=== PATIENT | female | born 1965 | race American Indian/Alaskan Native ===

== ENCOUNTER 2019-06-05 08:20 | Emergency (ER) | payer SELFPAY ==
[2019-06-05 08:29] VITALS: BP 125/71
--- NOTE | 2019-06-05 09:05 | XRay Report ---
CHEST 2 VIEWS INDICATION: Chest Pain. COMPARISON: 08/17/2009 FINDINGS: Support devices: None. Heart: Within normal limits. Lungs/pleura: No acute air space or interstitial disease. No pneumothorax. Additional findings: None. IMPRESSION: 1. No acute findings. Signer Name: Harmeet Kern MD Signed: 06/05/2019 9:00 AM Workstation Name: [id number]
[2019-06-05 09:17] LABS: BUN/Creatinine Ratio 13; Blood Urea Nitrogen 8 mg/dL (7-17); Calcium 9.4 mg/dL (8.4-10.2); Hemolysis Index 1
--- NOTE | 2019-06-05 09:24 | Emergency Department Report ---
ED General Adult HPI - General Chief complaint: Upper Respiratory Infection Stated complaint: CHEST PAIN/RT EARACHE Time Seen by Provider: 06/05/19 09:12 Source: patient, family Mode of arrival: Ambulatory Limitations: No Limitations - History of Present Illness Initial comments: I have a cold with chest tightness cough and earache. Pain generalized 6 out of 10 and achy . No medication taken for pain. Coughing 1 month and has a history of asthma and bronchitis. Take albuterol for asthma as needed MD Complaint: cold Onset/Timin -: month(s) Radiation: other (generalized pain) Severity scale (0 -10): 6 Quality: aching Consistency: intermittent Worsens with: none Associated Symptoms: chest pain, cough, other (wheezing and nasal drainage). denies: confusion, diaphoresis, fever/chills, headaches, loss of appetite, malaise, nausea/vomiting, rash, seizure, shortness of breath, syncope, weakness Treatments Prior to Arrival: other (albuterol) - Related Data Home Medications Medication Instructions Recorded Confirmed Last Taken Albuterol Sulfate [Albuterol 0.63%] 0.63 mg IH TID PRN 08/27/13 08/27/13 08/26/13 14:00 Previous Rx's Medication Instructions Recorded Last Taken Type Amoxicillin [Trimox CAP] 500 mg PO Q8H #30 capsule 08/27/13 Unknown Rx Ibuprofen [Motrin] 800 mg PO TID PRN #15 tablet 08/27/13 Unknown Rx Prednisone 20 mg PO QDAY #5 tablet 08/27/13 Unknown Rx ALBUTEROL Inhaler (OR & NICU) 2 puff IH Q6H PRN #1 inhalation 06/05/19 Unknown Rx [ProAir HFA Inhaler] Amoxicillin/K Clav Tab [Augmentin 1 tab PO Q12HR #20 tab 06/05/19 Unknown Rx 875MG TAB] Cetirizine HCl [ZyrTEC] 10 mg PO QAM 14 Days #14 capsule 06/05/19 Unknown Rx Fluticasone [Flonase] 1 spray NS QDAY 14 Days #1 bottle 06/05/19 Unknown Rx Ibuprofen [Motrin] 800 mg PO Q8HR PRN #12 tablet 06/05/19 Unknown Rx Inhaler, Assist Devices [Space 1 each MC ONCE #1 spacer 06/05/19 Unknown Rx Chamber Plus] guaiFENesin/CODEINE [Robitussin AC] 10 ml PO QHS PRN #70 oral.liqd 06/05/19 Unknown Rx methylPREDNISolone [Medrol 4MG 4 mg PO QAM 6 Days #1 tab.ds.pk 06/05/19 Unknown Rx DOSEPAK (21 tabs)] Allergies Allergy/AdvReac Type Severity Reaction Status Date / Time No Known Allergies Allergy Unverified 08/27/13 06:24 ED Review of Systems ROS: Stated complaint: CHEST PAIN/RT EARACHE Other details as noted in HPI Constitutional: denies: chills, fever Eyes: denies: eye pain, vision change ENT: congestion. denies: ear pain, throat pain Respiratory: cough, wheezing. denies: shortness of breath, SOB with exertion, SOB at rest Cardiovascular: denies: chest pain, palpitations, edema, syncope Gastrointestinal: denies: abdominal pain, nausea, vomiting Musculoskeletal: arthralgia, myalgia Skin: denies: rash Neurological: denies: headache, numbness, paresthesias, abnormal gait, vertigo ED Past Medical Hx - Past Medical History Previous Medical History?: Yes Hx Asthma: Yes (bronchitis) - Surgical History Past Surgical History?: No - Family History Family history: hypertension - Social History Smoking Status: Never Smoker Substance Use Type: Alcohol - Medications Home Medications: Home Medications Medication Instructions Recorded Confirmed Last Taken Type Albuterol Sulfate [Albuterol 0.63%] 0.63 mg IH TID PRN 08/27/13 08/27/13 08/26/13 14:00 History Amoxicillin [Trimox CAP] 500 mg PO Q8H #30 capsule 08/27/13 Unknown Rx Ibuprofen [Motrin] 800 mg PO TID PRN #15 tablet 08/27/13 Unknown Rx Prednisone 20 mg PO QDAY #5 tablet 08/27/13 Unknown Rx ALBUTEROL Inhaler (OR & NICU) 2 puff IH Q6H PRN #1 inhalation 06/05/19 Unknown Rx [ProAir HFA Inhaler] Amoxicillin/K Clav Tab [Augmentin 1 tab PO Q12HR #20 tab 06/05/19 Unknown Rx 875MG TAB] Cetirizine HCl [ZyrTEC] 10 mg PO QAM 14 Days #14 capsule 06/05/19 Unknown Rx Fluticasone [Flonase] 1 spray NS QDAY 14 Days #1 bottle 06/05/19 Unknown Rx Ibuprofen [Motrin] 800 mg PO Q8HR PRN #12 tablet 06/05/19 Unknown Rx Inhaler, Assist Devices [Space 1 each MC ONCE #1 spacer 06/05/19 Unknown Rx Chamber Plus] guaiFENesin/CODEINE [Robitussin AC] 10 ml PO QHS PRN #70 oral.liqd 06/05/19 Unknown Rx methylPREDNISolone [Medrol 4MG 4 mg PO QAM 6 Days #1 tab.ds.pk 06/05/19 Unknown Rx DOSEPAK (21 tabs)] ED Physical Exam - General Limitations: No Limitations General appearance: alert, in no apparent distress - Head Head exam: Present: atraumatic, normocephalic - Eye Eye exam: Present: normal appearance, PERRL, EOMI Pupils: Present: normal accommodation - ENT ENT exam: Present: normal orophraynx, mucous membranes moist, TM's normal bilaterally (congested), other (nasal congestion with drainage. Mildly increasing turbinates with erythema). Absent: normal external ear exam - Neck Neck exam: Present: normal inspection, full ROM. Absent: tenderness, lymphadenopathy - Respiratory Respiratory exam: Present: wheezes (scattered wheezes into lung ken), other (dry cough). Absent: respiratory distress, chest wall tenderness, accessory muscle use - Cardiovascular Cardiovascular Exam: Present: normal rhythm, bradycardia, normal heart sounds, other (patient reports that she always has a low heart rate and manual pulses at 55 bpm) - GI/Abdominal GI/Abdominal exam: Present: soft (.), normal bowel sounds. Absent: tenderness - Extremities Exam Extremities exam: Present: normal inspection, full ROM, normal capillary refill, other (No cce. + 2 pulses in all extremities, no neurovascular compromise). Absent: tenderness, pedal edema, joint swelling, calf tenderness - Back Exam Back exam: Present: normal inspection, full ROM, other (ambulates without any difficulties). Absent: tenderness, muscle spasm, rash noted - Neurological Exam Neurological exam: Present: alert, oriented X3, normal gait - Psychiatric Psychiatric exam: Present: normal affect, normal mood - Skin Skin exam: Present: warm, dry, intact, normal color. Absent: rash ED Course Vital Signs 06/05/19 08:28 Temperature 98.1 F Pulse Rate 50 L Respiratory 20 Rate Blood Pressure 125/71 O2 Sat by Pulse 100 Oximetry Vital Signs 06/05/19 06/05/19 06/05/19 08:28 09:58 10:14 Temperature 98.1 F Pulse Rate 50 L 58 L Pulse Rate [ 54 L Anterior Bilateral Throughout] Respiratory 20 Rate Respiratory 17 Rate [Anterior Bilateral Throughout] Blood Pressure 125/71 O2 Sat by Pulse 100 Oximetry - Reevaluation(s) Reevaluation #1: 06/05/19 10:08 Patient given Xopenex 0.63 mg nebulizer and Deltasone 60 mg by mouth. She stable in no acute distress. Reevaluation #2: 06/05/19 10:14 Patient is stable and in no acute distress. Lung sounds are clear after Xopenex. ED Medical Decision Making - Lab Data Result diagrams: 06/05/19 08:42 06/05/19 08:42 Lab Results 06/05/19 06/05/19 Range/Units 08:42 08:42 WBC 3.8 L (4.5-11.0) K/mm3 RBC 4.52 (3.65-5.03) M/mm3 Hgb 12.5 (10.1-14.3) gm/dl Hct 37.7 (30.3-42.9) % MCV 84 (79-97) fl MCH 28 (28-32) pg MCHC 33 (30-34) % RDW 14.5 (13.2-15.2) % Plt Count 205 (140-440) K/mm3 Lymph % (Auto) 48.9 H (13.4-35.0) % Moore % (Auto) 10.2 H (0.0-7.3) % Eos % (Auto) 2.9 (0.0-4.3) % Baso % (Auto) 0.9 (0.0-1.8) % Lymph # 1.8 (1.2-5.4) K/mm3 Moore # 0.4 (0.0-0.8) K/mm3 Eos # 0.1 (0.0-0.4) K/mm3 Baso # 0.0 (0.0-0.1) K/mm3 Seg Neutrophils % 37.1 L (40.0-70.0) % Seg Neutrophils # 1.4 L (1.8-7.7) K/mm3 Sodium 139 (137-145) mmol/L Potassium 3.9 (3.6-5.0) mmol/L Chloride 105.9 (98-107) mmol/L Carbon Dioxide 23 (22-30) mmol/L Anion Gap 14 mmol/L BUN 8 (7-17) mg/dL Creatinine 0.6 L (0.7-1.2) mg/dL Estimated GFR > 60 ml/min BUN/Creatinine Ratio 13 % Glucose 108 H (65-100) mg/dL Calcium 9.4 (8.4-10.2) mg/dL Troponin T < 0.010 (0.00-0.029) ng/mL - EKG Data -: EKG Interpreted by Me (attending physician) Rate: bradycardia (47 bpm. Manual pulses at 55 bpm) - EKG Data When compared to previous EKG there are: no significant change - Radiology Data Radiology results: report reviewed Chest x-ray dictated by radiologist and report reviewed by myself. Please see details below Print Report Referring Physician:LUZ MARINA KINCAIDPatient Name:ZULMA PATELPatient ID:[id number] of :[id number]:FemaleAccession:[id number] Date:[id number] Status:Finalized Findings [facility] [address] [place] [address] XRay Report Signed Patient: ZULMA PATEL MR#: [id number] : 1965 Acct:[id number] Age/Sex: 53 / F ADM Date: 06/05/19 Loc: ED Attending Dr: Ordering Physician: LUZ MARINA KINCAID MD Date of Service: 06/05/19 Procedure(s): XR chest routine 2V Accession Number(s): [id number] cc: LUZ MARINA KINCAID MD Fluoro Time In Minutes: CHEST 2 VIEWS INDICATION: Chest Pain. COMPARISON: 08/17/2009 FINDINGS: Support devices: None. Heart: Within normal limits. Lungs/pleura: No acute air space or interstitial disease. No pneumothorax. Additional findings: None. IMPRESSION: 1. No acute findings. Signer Name: Harmeet Kern MD Signed: 06/05/2019 9:00 AM Workstation Name: [id number] Transcribed By: JORGE LUIS Dictated By: Harmeet Kern MD Electronically Authenticated By: Harmeet Kern MD Signed Date/Time: 06/05/19899 DD/ 8 TD/TT: - Medical Decision Making 53-year-old female here for cough congestion for over a month. Chest x-ray reveals no acute findings per radiologist and reviewed by myself. Patient was given Xopenex and Deltasone emergency room without any adverse reaction. She says she feels better. I discussed diagnosis, treatment plan and x-ray findings of her along with her EKG and lab work and she voiced understanding. Patient with bronchitis and asthma, mild. I discussed treatment plan of albuterol, Flonase, Augmentin, Medrol Dosepak, Augmentin and Zyrtec along with Motrin and to follow-up with her primary care which she says she does have one in 2-3 days and she voiced understanding. - Differential Diagnosis PNA, ACS, bronchitis, asthma, upper respiratory with cough and congestion Critical care attestation.: If time is entered above; I have spent that time in minutes in the direct care of this critically ill patient, excluding procedure time. ED Disposition Clinical Impression: Cough Asthmatic bronchitis with acute exacerbation Qualifiers: Asthma severity: mild Asthma persistence: intermittent Qualified Code(s): J45.21 - Mild intermittent asthma with (acute) exacerbation Disposition: DC-01 TO HOME OR SELFCARE Is pt being admited?: No Does the pt Need Aspirin: No Condition: Stable Instructions: Asthma (ED), Acute Bronchitis (ED) Additional Instructions: Follow-up with the primary care physician in 2-3 days and if he do not have one follow[facility]up with [facility] Take medication as prescribed Return to the emergency room if he symptoms worsens Please do not drive or operate heavy machinery while taking and guaifenesin with codeine cough medicine as this causes drowsiness Referrals: [facility] [Outside] - 3-5 Days Forms: Work/School Release Form(ED)
[2019-06-05] MEDS ORDERED: LEVALBUTEROL 0.63 MG/3 ML NEBU IH ONE (09:25)
[2019-06-05] MEDS ORDERED: predniSONE 20 MG TAB PO ONE (09:26)
[2019-06-05 09:39] LABS: Basophils % (Auto) 0.9 % (0.0-1.8); Eosinophils # (Auto) 0.1 K/mm3 (0.0-0.4); Eosinophils % (Auto) 2.9 % (0.0-4.3); Hematocrit 37.7 % (30.3-42.9); Hemoglobin 12.5 gm/dl (10.1-14.3); Lymphocytes # (Auto) 1.8 K/mm3 (1.2-5.4); Lymphocytes % (Auto) 48.9 % (13.4-35.0); Mean Corpuscular HGB Conc 33 % (30-34); Mean Corpuscular Volume 84 fl (79-97); Monocytes # (Auto) 0.4 K/mm3 (0.0-0.8); Monocytes % (Auto) 10.2 % (0.0-7.3); Platelet Count 205 K/mm3 (140-440); Red Blood Count 4.52 M/mm3 (3.65-5.03); Red Cell Distribution Width 14.5 % (13.2-15.2)
== END 2019-06-05 10:52 | disposition home or self-care (01) ==
LOC: ED 08:20
DX: J45.901 Unspecified asthma with (acute) exacerbation (principal); Z79.899 Other long term (current) drug therapy
CPT/HCPCS: 36415; 71046; 80048; 84484; 85025; 93005; 93010; 94640; 99284; J7512; 94644

== ENCOUNTER 2020-05-28 17:25 | Emergency (ER) | payer SELFPAY ==
--- NOTE | 2020-05-28 17:32 | Event Note ---
ED Screening Note Date of service: 05/28/20 Time: 17:30 ED Screening Note: Pt c/o sudden onset of chest pain x today denies hx of MA/CVA/DVT/PE states she takes unknown medication for hot flashes, but denies the medication being a hormone This initial assessment/diagnostic orders/clinical plan/treatment(s) is/are subject to change based on patients health status, clinical progression and re- assessment by fellow clinical providers in the ED. Further treatment and workup at subsequent clinical providers discretion. Patient/guardian urged not to elope from the ED as their condition may be serious if not clinically assessed and managed. Initial orders include: CXR EKG labs
--- NOTE | 2020-05-28 18:02 | XRay Report ---
CHEST 2 VIEWS INDICATION / CLINICAL INFORMATION: Chest Pain. COMPARISON: 05/28/2019 FINDINGS: SUPPORT DEVICES: None. HEART / MEDIASTINUM: No significant abnormality. LUNGS / PLEURA: No significant pulmonary or pleural abnormality. No pneumothorax. ADDITIONAL FINDINGS: No significant additional findings. IMPRESSION: No significant abnormality or interval change from 06/05/2015 Signer Name: Omer Welch MD FACR Signed: 05/28/2020 5:57 PM Workstation Name: [id number]
[2020-05-28 18:46] LABS: Basophils # (Auto) 0.1 K/mm3 (0.0-0.1); Basophils % (Auto) 0.9 % (0.0-1.8); Eosinophils # (Auto) 0.1 K/mm3 (0.0-0.4); Eosinophils % (Auto) 0.7 % (0.0-4.3); Hematocrit 38.5 % (30.3-42.9); Hemoglobin 12.9 gm/dl (10.1-14.3); Lymphocytes # (Auto) 2.2 K/mm3 (1.2-5.4); Lymphocytes % (Auto) 26.8 % (13.4-35.0); Mean Corpuscular HGB Conc 34 % (30-34); Mean Corpuscular Volume 82 fl (79-97); Monocytes # (Auto) 0.8 K/mm3 (0.0-0.8); Monocytes % (Auto) 9.5 % (0.0-7.3); Platelet Count 195 K/mm3 (140-440); Red Cell Distribution Width 13.9 % (13.2-15.2)
[2020-05-28 19:03] LABS: Alanine Aminotransferase 14 units/L (7-56); Albumin 4.3 g/dL (3.9-5); Blood Urea Nitrogen 13 mg/dL (7-17); Calcium 10.2 mg/dL (8.4-10.2); Hemolysis Index 17
[2020-05-28 19:05] LABS: BUN/Creatinine Ratio 19
[2020-05-28 22:05] VITALS: BP 141/57
--- NOTE | 2020-05-28 23:17 | Emergency Department Report ---
ED Chest Pain HPI - General Chief Complaint: Chest Pain Stated Complaint: PAIN IN BLADDER, CHEST PAIN Time Seen by Provider: 05/28/20 17:27 Source: patient Mode of arrival: Ambulatory Limitations: No Limitations - History of Present Illness Initial Comments: Patient is a 54-year-old -[place] female with history of bronchitis who presents for chest and low back pain x today, pt denies fever or chills, n/v ,or fever or chills. Pt denies sob, dizziness, no lightheadedness, pt endorses dysuria and frequency, she denies hematuria, no hx or renal stones, no hx Gallstones,no hx or PE. Symptoms are rated at 4/10 sharp achy, symptom exacerbated by movement, symptom relieved by nothing tried. Pt denies smoking. MD Complaint: chest pain - Related Data Home Medications Medication Instructions Recorded Confirmed Last Taken Albuterol Sulfate [Albuterol 0.63%] 0.63 mg IH TID PRN 08/27/13 08/27/13 08/26/13 14:00 Previous Rx's Medication Instructions Recorded Last Taken Type Amoxicillin [Trimox CAP] 500 mg PO Q8H #30 capsule 08/27/13 Unknown Rx Ibuprofen [Motrin] 800 mg PO TID PRN #15 tablet 08/27/13 Unknown Rx Prednisone 20 mg PO QDAY #5 tablet 08/27/13 Unknown Rx Albuterol Mdi (or & Nicu Only) 2 puff IH Q6H PRN #1 inhalation 06/05/19 Unknown Rx [ProAir HFA Inhaler] Amoxicillin/K Clav Tab [Augmentin 1 tab PO Q12HR #20 tab 06/05/19 Unknown Rx 875MG TAB] Cetirizine HCl [ZyrTEC] 10 mg PO QAM 14 Days #14 capsule 06/05/19 Unknown Rx Fluticasone [Flonase] 1 spray NS QDAY 14 Days #1 bottle 06/05/19 Unknown Rx Ibuprofen [Motrin] 800 mg PO Q8HR PRN #12 tablet 06/05/19 Unknown Rx Inhaler, Assist Devices [Space 1 each MC ONCE #1 spacer 06/05/19 Unknown Rx Chamber Plus] guaiFENesin/CODEINE [Robitussin AC] 10 ml PO QHS PRN #70 oral.liqd 06/05/19 Unknown Rx methylPREDNISolone [Medrol 4MG 4 mg PO QAM 6 Days #1 tab.ds.pk 06/05/19 Unknown Rx DOSEPAK (21 tabs)] Ibuprofen [Motrin 800 MG tab] 800 mg PO Q8HR PRN 7 Days #21 05/29/20 Unknown Rx tablet Sulfamethoxazole/Trimethoprim 1 each PO BID 7 Days #14 tablet 05/29/20 Unknown Rx [Bactrim DS TAB] Allergies Allergy/AdvReac Type Severity Reaction Status Date / Time No Known Allergies Allergy Unverified 08/27/13 06:24 Heart Score - HEART Score History: Slightly suspicious EKG: Normal Age: 45-65 Risk factors: No known risk factors Troponin: < normal limit HEART Score: 1 ED Review of Systems ROS: Stated complaint: PAIN IN BLADDER, CHEST PAIN Other details as noted in HPI Constitutional: denies: chills, fever Eyes: denies: eye pain, eye discharge, vision change ENT: denies: ear pain, throat pain Respiratory: denies: cough, shortness of breath, wheezing Cardiovascular: denies: chest pain, palpitations Endocrine: no symptoms reported Gastrointestinal: denies: abdominal pain, nausea, vomiting, diarrhea Genitourinary: urgency, dysuria, frequency. denies: hematuria, discharge, dyspareunia Musculoskeletal: back pain Skin: denies: rash, lesions Neurological: denies: headache, weakness, paresthesias, vertigo Psychiatric: denies: anxiety, depression Hematological/Lymphatic: denies: easy bleeding, easy bruising ED Past Medical Hx - Past Medical History Hx Asthma: Yes (bronchitis) - Surgical History Past Surgical History?: No - Social History Smoking Status: Never Smoker - Medications Home Medications: Home Medications Medication Instructions Recorded Confirmed Last Taken Type Albuterol Sulfate [Albuterol 0.63%] 0.63 mg IH TID PRN 08/27/13 08/27/13 08/26/13 14:00 History Amoxicillin [Trimox CAP] 500 mg PO Q8H #30 capsule 08/27/13 Unknown Rx Ibuprofen [Motrin] 800 mg PO TID PRN #15 tablet 08/27/13 Unknown Rx Prednisone 20 mg PO QDAY #5 tablet 08/27/13 Unknown Rx Albuterol Mdi (or & Nicu Only) 2 puff IH Q6H PRN #1 inhalation 06/05/19 Unknown Rx [ProAir HFA Inhaler] Amoxicillin/K Clav Tab [Augmentin 1 tab PO Q12HR #20 tab 06/05/19 Unknown Rx 875MG TAB] Cetirizine HCl [ZyrTEC] 10 mg PO QAM 14 Days #14 capsule 06/05/19 Unknown Rx Fluticasone [Flonase] 1 spray NS QDAY 14 Days #1 bottle 06/05/19 Unknown Rx Ibuprofen [Motrin] 800 mg PO Q8HR PRN #12 tablet 06/05/19 Unknown Rx Inhaler, Assist Devices [Space 1 each MC ONCE #1 spacer 06/05/19 Unknown Rx Chamber Plus] guaiFENesin/CODEINE [Robitussin AC] 10 ml PO QHS PRN #70 oral.liqd 06/05/19 Unknown Rx methylPREDNISolone [Medrol 4MG 4 mg PO QAM 6 Days #1 tab.ds.pk 06/05/19 Unknown Rx DOSEPAK (21 tabs)] Ibuprofen [Motrin 800 MG tab] 800 mg PO Q8HR PRN 7 Days #21 05/29/20 Unknown Rx tablet Sulfamethoxazole/Trimethoprim 1 each PO BID 7 Days #14 tablet 05/29/20 Unknown Rx [Bactrim DS TAB] ED Physical Exam - General Limitations: No Limitations General appearance: alert, in no apparent distress - Head Head exam: Present: atraumatic, normocephalic - Eye Eye exam: Present: normal appearance, PERRL, EOMI Pupils: Present: normal accommodation - ENT ENT exam: Present: mucous membranes moist - Neck Neck exam: Present: normal inspection, full ROM. Absent: tenderness - Respiratory Respiratory exam: Present: normal lung sounds bilaterally. Absent: respiratory distress, wheezes, stridor, chest wall tenderness - Cardiovascular Cardiovascular Exam: Present: regular rate, normal rhythm, normal heart sounds. Absent: systolic murmur, diastolic murmur, rubs, gallop - GI/Abdominal GI/Abdominal exam: Present: soft, normal bowel sounds. Absent: distended, tenderness (right flank ), guarding, rebound, rigid, bruit, hernia - Rectal Rectal exam: Present: deferred - Extremities Exam Extremities exam: Present: normal inspection, normal capillary refill. Absent: tenderness, pedal edema - Back Exam Back exam: Present: normal inspection, full ROM, CVA tenderness (R). Absent: CVA tenderness (L), rash noted - Neurological Exam Neurological exam: Present: alert, oriented X3, normal gait - Psychiatric Psychiatric exam: Present: normal affect, normal mood - Skin Skin exam: Present: warm, dry, intact, normal color. Absent: rash ED Course Vital Signs 05/28/20 05/28/20 05/28/20 17:29 22:04 22:18 Temperature 98.5 F 98.9 F 98.2 F Pulse Rate 73 48 L 48 L Respiratory 18 16 16 Rate Blood Pressure 137/80 Blood Pressure 141/57 141/57 [Right] O2 Sat by Pulse 99 100 100 Oximetry JORDAN score - Jordan Score Age > 65: (0) No Aspirin use within the Past 7 Days: (0) No 3 or more CAD Risk Factors: (0) No 2 or more Angina events in past 24 hrs: (0) No Known CAD with more than 50% Stenosis: (0) No Elevated Cardiac Markers: (0) No ST Deviation Greater than 0.5mm: (0) No JORDAN Score: 0 ED Medical Decision Making - Lab Data Result diagrams: 05/28/20 18:25 05/28/20 18:25 Labs 05/28/20 05/28/20 05/28/20 18:25 18:25 18:25 WBC 8.4 RBC 4.70 Hgb 12.9 Hct 38.5 MCV 82 MCH 28 MCHC 34 RDW 13.9 Plt Count 195 Lymph % (Auto) 26.8 [place] % (Auto) 9.5 H Eos % (Auto) 0.7 Baso % (Auto) 0.9 Lymph # (Auto) 2.2 [place] # (Auto) 0.8 Eos # (Auto) 0.1 Baso # (Auto) 0.1 Seg Neutrophils % 62.1 Seg Neutrophils # 5.2 Sodium 140 Potassium 4.1 Chloride 103.8 Carbon Dioxide 26 Anion Gap 14 BUN 13 Creatinine 0.7 Estimated GFR > 60 BUN/Creatinine Ratio 19 Glucose 106 H Calcium 10.2 Total Bilirubin 0.40 AST 26 ALT 14 Alkaline Phosphatase 70 Troponin T < 0.010 Total Protein 7.8 Albumin 4.3 Albumin/Globulin Ratio 1.2 05/28/20 21:22 WBC RBC Hgb Hct MCV MCH MCHC RDW Plt Count Lymph % (Auto) [place] % (Auto) Eos % (Auto) Baso % (Auto) Lymph # (Auto) [place] # (Auto) Eos # (Auto) Baso # (Auto) Seg Neutrophils % Seg Neutrophils # Sodium Potassium Chloride Carbon Dioxide Anion Gap BUN Creatinine Estimated GFR BUN/Creatinine Ratio Glucose Calcium Total Bilirubin AST ALT Alkaline Phosphatase Troponin T < 0.010 Total Protein Albumin Albumin/Globulin Ratio Lab Results 05/28/20 05/28/20 05/28/20 Range/Units 18:25 18:25 18:25 WBC 8.4 (4.5-11.0) K/mm3 RBC 4.70 (3.65-5.03) M/mm3 Hgb 12.9 (10.1-14.3) gm/dl Hct 38.5 (30.3-42.9) % MCV 82 (79-97) fl MCH 28 (28-32) pg MCHC 34 (30-34) % RDW 13.9 (13.2-15.2) % Plt Count 195 (140-440) K/mm3 Lymph % (Auto) 26.8 (13.4-35.0) % [place] % (Auto) 9.5 H (0.0-7.3) % Eos % (Auto) 0.7 (0.0-4.3) % Baso % (Auto) 0.9 (0.0-1.8) % Lymph # (Auto) 2.2 (1.2-5.4) K/mm3 [place] # (Auto) 0.8 (0.0-0.8) K/mm3 Eos # (Auto) 0.1 (0.0-0.4) K/mm3 Baso # (Auto) 0.1 (0.0-0.1) K/mm3 Seg Neutrophils % 62.1 (40.0-70.0) % Seg Neutrophils # 5.2 (1.8-7.7) K/mm3 Sodium 140 (137-145) mmol/L Potassium 4.1 (3.6-5.0) mmol/L Chloride 103.8 (98-107) mmol/L Carbon Dioxide 26 (22-30) mmol/L Anion Gap 14 mmol/L BUN 13 (7-17) mg/dL Creatinine 0.7 (0.6-1.2) mg/dL Estimated GFR > 60 ml/min BUN/Creatinine Ratio 19 % Glucose 106 H (65-100) mg/dL Calcium 10.2 (8.4-10.2) mg/dL Total Bilirubin 0.40 (0.1-1.2) mg/dL AST 26 (5-40) units/L ALT 14 (7-56) units/L Alkaline Phosphatase 70 (35-129) units/L Troponin T < 0.010 (0.00-0.029) ng/mL Total Protein 7.8 (6.3-8.2) g/dL Albumin 4.3 (3.9-5) g/dL Albumin/Globulin Ratio 1.2 % Urine Color (Yellow) Urine Turbidity (Clear) Urine pH (5.0-7.0) Ur Specific [place] (1.003-1.030) Urine Protein (Negative) mg/dL Urine Glucose (UA) (Negative) mg/dL Urine Ketones (Negative) mg/dL Urine Blood (Negative) Urine Nitrite (Negative) Urine Bilirubin (Negative) Urine Urobilinogen (<2.0) mg/dL Ur Leukocyte Esterase (Negative) Urine WBC (Auto) (0.0-6.0) /HPF Urine RBC (Auto) (0.0-6.0) /HPF U Epithel Cells (Auto) (0-13.0) /HPF Urine Bacteria (Auto) (Negative) /HPF 05/28/20 05/28/20 Range/Units 21:22 23:20 WBC (4.5-11.0) K/mm3 RBC (3.65-5.03) M/mm3 Hgb (10.1-14.3) gm/dl Hct (30.3-42.9) % MCV (79-97) fl MCH (28-32) pg MCHC (30-34) % RDW (13.2-15.2) % Plt Count (140-440) K/mm3 Lymph % (Auto) (13.4-35.0) % [place] % (Auto) (0.0-7.3) % Eos % (Auto) (0.0-4.3) % Baso % (Auto) (0.0-1.8) % Lymph # (Auto) (1.2-5.4) K/mm3 [place] # (Auto) (0.0-0.8) K/mm3 Eos # (Auto) (0.0-0.4) K/mm3 Baso # (Auto) (0.0-0.1) K/mm3 Seg Neutrophils % (40.0-70.0) % Seg Neutrophils # (1.8-7.7) K/mm3 Sodium (137-145) mmol/L Potassium (3.6-5.0) mmol/L Chloride (98-107) mmol/L Carbon Dioxide (22-30) mmol/L Anion Gap mmol/L BUN (7-17) mg/dL Creatinine (0.6-1.2) mg/dL Estimated GFR ml/min BUN/Creatinine Ratio % Glucose (65-100) mg/dL Calcium (8.4-10.2) mg/dL Total Bilirubin (0.1-1.2) mg/dL AST (5-40) units/L ALT (7-56) units/L Alkaline Phosphatase (35-129) units/L Troponin T < 0.010 (0.00-0.029) ng/mL Total Protein (6.3-8.2) g/dL Albumin (3.9-5) g/dL Albumin/Globulin Ratio % Urine Color Yellow (Yellow) Urine Turbidity Cloudy (Clear) Urine pH 6.0 (5.0-7.0) Ur Specific [place] 1.012 (1.003-1.030) Urine Protein 30 mg/dl (Negative) mg/dL Urine Glucose (UA) Neg (Negative) mg/dL Urine Ketones Tr (Negative) mg/dL Urine Blood Lg (Negative) Urine Nitrite Neg (Negative) Urine Bilirubin Neg (Negative) Urine Urobilinogen < 2.0 (<2.0) mg/dL Ur Leukocyte Esterase Lg (Negative) Urine WBC (Auto) > 182.0 H (0.0-6.0) /HPF Urine RBC (Auto) 99.0 (0.0-6.0) /HPF U Epithel Cells (Auto) 5.0 (0-13.0) /HPF Urine Bacteria (Auto) 1+ (Negative) /HPF - EKG Data -: EKG Interpreted by Me EKG shows normal: sinus rhythm Rate: normal - EKG Data Interpretation: normal EKG (NSR no STEMI, ekg interp be ED attending, ) - Radiology Data Radiology results: report reviewed, image reviewed Findings Reporting MD: Omer Welch Dictation Time: May 28, 2020 16:57 Machine Engineer: Not available Environmental Laboratory Technician Date: CHEST 2 VIEWS INDICATION / CLINICAL INFORMATION: Chest Pain. COMPARISON: 05/28/2019 FINDINGS: SUPPORT DEVICES: None. HEART / MEDIASTINUM: No significant abnormality. LUNGS / PLEURA: No significant pulmonary or pleural abnormality. No pneumothorax. ADDITIONAL FINDINGS: No significant additional findings. IMPRESSION: No significant abnormality or interval change from 06/05/2015 Signer Name: Omer Welch MD FACR Signed: 05/28/2020 4:57 PM Workstation Name: [id number] - Medical Decision Making This is a UTI, pt denies hematuria, voiding now improved, pt declines hx or renal stones, there is no fever or chills, plan: dc to home with rx pt will follow up with PCP in 2-3 . pt will be dc'd to home in stable condition at this time. s con Critical care attestation.: If time is entered above; I have spent that time in minutes in the direct care of this critically ill patient, excluding procedure time. ED Disposition Clinical Impression: Flank pain UTI (urinary tract infection) Qualifiers: Urinary tract infection type: acute cystitis Hematuria presence: without hematuria Qualified Code(s): N30.00 - Acute cystitis without hematuria Disposition: DC-01 TO HOME OR SELFCARE Is pt being admited?: No Does the pt Need Aspirin: No Condition: Stable Instructions: Urinary Tract Infection in Women (ED) Prescriptions: Sulfamethoxazole/Trimethoprim [Bactrim DS TAB] 1 each PO BID 7 Days #14 tablet Ibuprofen [Motrin 800 MG tab] 800 mg PO Q8HR PRN 7 Days #21 tablet PRN Reason: pain Referrals: JANETH MYLES MD [Staff Physician] - 3-5 Days Forms: Work/School Release Form(ED) Time of Disposition: 01:06
[2020-05-28 23:37] LABS: Bacteria,Urine 1+ /HPF (Negative); Bilirubin,Urine NEG (Negative); Blood,Urine LG (Negative); Color,Urine Yellow (Yellow); Urobilinogen,Urine < 2.0 mg/dL (<2.0)
[2020-05-28 23:53] LABS: WBC,Urine > 182.0 /HPF (0.0-6.0)
[2020-05-29] MEDS ORDERED: IBUPROFEN 800 MG TAB PO ONE (00:46)
[2020-05-29] MEDS ORDERED: SULFAMETHOXAZOLE/TRIMETHOPRIM 800/160MG DS TAB PO ONE (00:46)
== END 2020-05-29 01:16 | disposition home or self-care (01) ==
LOC: ED 17:25
DX: N39.0 Urinary tract infection, site not specified (principal)
CPT/HCPCS: 36415; 71046; 80053; 81001; 84484; 85025; 93005